=== PATIENT | female | born 1940 | race Caucasian/White ===

== ENCOUNTER → 2016-08-25 | Outpatient (CLI) | payer MEDICARE, OTHER ==
[~2016-08-25] MED LIST: ACET325T45 GTB; AMLO-145 GTB; ATOR10TA23 GTB; CALC667C4 GTB; CLON-429 GTB; LANT3I SC; METO-448 GTB; OMEP40CA6 GTB; REGULAR INSULIN; TRAM100T2 GTB; ZYRS GTB; nasonex NASL
--- NOTE | 2016-08-25 18:31 | RADRPT ---
Echocardiogram Report Patient Name: RADHA WRIGHT Gender: Female Date: 1940 Study Date: 25-Aug-2016 [employer] Supervisor: María Johnson RDCS Location: EKG Ref. Physician: JACEK AVILA Quality: Adequate Procedures: Transthoracic echocardiogram with complete 2D, M-Mode, and doppler examination. Indications: Hypertension. PACs. 2D/M Mode Doppler Measurement Value Normal Ranges Measurement Value Normal Ranges LVIDd 2D 4.0 3.5 - 5.6 cm AV Peak [place] 1.5 m/sec LVIDs 2D 1.8 2.1 - 4.1 cm AV Peak PG 8.9 mmHg LVPWd 2D 1.2 0.6 - 1.1 cm LVOT Peak [place] 1.0 m/sec IVSd 2D 1.1 0.6 - 1.1 cm LVOT Peak PG 4.3 mmHg AoR Diam 2D 3.2 2.0 - 3.7 cm MV E Peak [place] 0.9 m/sec EDV 2D 71.1 cm3 MV A Peak [place] 1.0 m/sec ESV 2D 6.0 cm3 MV E/A 0.9 LA Dimen 2D 3.6 2.3 - 4.0 cm MV Decel Time 233 msec MV Decel [place] 4 MV E/A 0.9 TR Peak [place] 2.6 m/sec TR Peak PG 26.4 mmHg RVSP 29.0 mmHg Findings Left Ventricle: Normal left ventricular systolic function. Normal left ventricular cavity size. Mild concentric left ventricular hypertrophy. Ejection fraction is visually estimated at 5560 %. Tissue Doppler/Mitral Doppler indices are consistent with impaired relaxation (Stage I diastolic dysfunction). Right Ventricle: Normal right ventricular size. Normal right ventricular systolic function. Left Atrium: The left atrium is normal in size. Right Atrium: The right atrium is normal in size. Mitral Valve: Mitral valve leaflets appear mildly thickened. Mild mitral annular calcification. Trace mitral regurgitation. Aortic Valve: No significant aortic stenosis or insufficiency. Aortic cusps appear mildly calcified. Tricuspid Valve: Normal appearance of the tricuspid valve. Estimated peak PA systolic pressure 29 mmHg. There is trace tricuspid regurgitation. Pericardium: Normal pericardium with no significant pericardial effusion. Aorta: Normal aortic root. IVC: Normal size and normal respiratory collapse consistent with normal right atrial pressure. Conclusions 1.Normal left ventricular systolic function. Normal left ventricular cavity size. Mild concentric left ventricular hypertrophy. Ejection fraction is visually estimated at 55-60 %. Tissue Doppler/Mitral Doppler indices are consistent with impaired relaxation (Stage I diastolic dysfunction). 2.Mitral valve leaflets appear mildly thickened. Mild mitral annular calcification. Trace mitral regurgitation. 3.Normal appearance of the tricuspid valve. Estimated peak PA systolic pressure 29 mmHg. There is trace tricuspid regurgitation. Electronically Signed By: Jacek Avila 25-Aug-2016 18:30:47 -0800 Patient Name: RADHA WRIGHT Study Date: 25-Aug-2016 [id number]
== END | disposition home or self-care (01) ==
LOC: EKG 13:19
PROVIDERS: ATTEND Internal Medicine
DX: I10 Essential (primary) hypertension (principal)
CPT/HCPCS: 93306